=== PATIENT | male | born 1975 | race Caucasian/White ===

== ENCOUNTER 2018-04-08 13:59 | Emergency (ER) | payer OTHER ==
[2018-04-08 16:34] LABS: ADD MAN DIFF? NO
[2018-04-08 16:36] LABS: BASOPHILS % 0.3 % (0.0-2.0); EOSINOPHILS # 0.1 10^3/ul (0.0-0.5); EOSINOPHILS % 1.1 % (0.0-7.0); HEMOGLOBIN 17.8 g/dl (14.0-18.0); LYMPHOCYTES # 2.2 10^3/ul (0.8-2.9); LYMPHOCYTES % 18.4 % (15.0-51.0); MEAN CORPUSCULAR HEMOGLOBIN 24.7 pg (29.0-33.0); MEAN CORPUSCULAR HGB CONC 32.4 g/dl (32.0-37.0); MEAN CORPUSCULAR VOLUME 76.3 fl (82.0-101.0); MEAN PLATELET VOLUME 10.6 fl (7.4-10.4); MONOCYTE # 0.7 10^3/ul (0.3-0.9); MONOCYTES % 6.2 % (0.0-11.0); NEUTROPHIL # 8.9 10^3/ul (1.6-7.5); NEUTROPHILS % 73.8 % (39.0-77.0); PLATELET COUNT 194 10^3/UL (140-415); RED BLOOD COUNT 7.21 10^6/ul (4.70-6.10); RED CELL DISTRIBUTION WIDTH 17.1 % (11.5-14.5)
[2018-04-08 16:54] LABS: ALANINE AMINOTRANSFERASE 68 IU/L (13-69); ALBUMIN 4.6 g/dl (3.3-4.9); ALBUMIN/GLOBULIN RATIO 1.27; ALKALINE PHOSPHATASE 63 IU/L (42-121); ANION GAP 15 (8-16); ASPARTATE AMINO TRANSFERASE 32 IU/L (15-46); BILIRUBIN,INDIRECT 1.7 mg/dl (0-1.1); BILIRUBIN,TOTAL 1.7 mg/dl (0.2-1.3); BLOOD UREA NITROGEN 11 mg/dl (7-20); CALCIUM 9.3 mg/dl (8.4-10.2); CARBON DIOXIDE 28 mmol/L (21-31); CHLORIDE 103 mmol/L (97-110); CREATININE 0.78 mg/dl (0.61-1.24); GLUCOSE 103 mg/dl (70-220); POTASSIUM 4.2 mmol/L (3.5-5.1); SODIUM 142 mmol/L (135-144); TOTAL PROTEIN 8.2 g/dl (6.1-8.1)
[2018-04-08 17:06] LABS: B-TYPE NATRIURETIC PEPTIDE 58 PG/ML (0-125)
[2018-04-08 17:07] LABS: TROPONIN-I < 0.012 ng/ml (0.000-0.120)
[2018-04-08] MEDS: predniSONE 20 MG TAB PO (18:05)
[2018-04-08] MEDS: SOD CHLORIDE 0.9% 1,000 ML IV (18:05)
[2018-04-08] MEDS: KETOROLAC 15 MG INJ IV (18:06)
[2018-04-08] MEDS: IPRATROPIUM (NEB) 0.5 MG/2.5 ML AMP INH (18:13)
[2018-04-08] MEDS: ALBUTEROL 0.5% (NEB) 2.5 MG/0.5 ML AMP INH (18:14)
== END 2018-04-08 20:08 | disposition home or self-care (01) ==
LOC: E/R 20:08
DX: J20.9 Acute bronchitis, unspecified (principal); R00.0 Tachycardia, unspecified; B34.9 Viral infection, unspecified; D72.823 Leukemoid reaction; R71.8 Other abnormality of red blood cells; R17 Unspecified jaundice; R40.2142 Coma scale, eyes open, spontaneous, at arrival to emergency department; R40.2252 Coma scale, best verbal response, oriented, at arrival to emergency department; R40.2362 Coma scale, best motor response, obeys commands, at arrival to emergency department
CPT/HCPCS: 36415; 71045; 80053; 83880; 84484; 85025; 93005; 94644; 96374; 99285-25

== ENCOUNTER 2019-05-11 23:10 | Emergency (ER) | payer OTHER | END 2019-05-12 04:47 | disposition home or self-care (01) | LOC: FTE 23:10 | DX: S06.0X0A Concussion without loss of consciousness, initial encounter (principal); S20.219A Contusion of unspecified front wall of thorax, initial encounter; M62.838 Other muscle spasm; V48.5XXA Car driver injured in noncollision transport accident in traffic accident, initial encounter; Z79.82 Long term (current) use of aspirin | CPT/HCPCS: 70450; 71046; 72040; 99284-25 ==

== ENCOUNTER 2019-08-07 11:41 | Day surgery (SDC) | payer OTHER ==
[2019-08-07] MEDS ORDERED: LIDOCAINE 100 MG SYRINGE (13:24)
[2019-08-07] MEDS ORDERED: PROPOFOL 40 ML (13:24)
[2019-08-07] MEDS ORDERED: FENTAnyl 50 MCG/ML VIAL (13:24)
== END 2019-08-07 16:17 | disposition home or self-care (01) ==
LOC: GIL 11:41
DX: K64.8 Other hemorrhoids (principal); K29.50 Unspecified chronic gastritis without bleeding; K21.9 Gastro-esophageal reflux disease without esophagitis
CPT/HCPCS: 43239; 88305; 88312